=== PATIENT | female | born 1980 | race Two or more races ===

== ENCOUNTER 2022-04-25 02:49 | Emergency (ER) | payer MEDICAID ==
[~2022-04-25] VITALS: Ht 157.5 cm; Wt 69.0 kg
[~2022-04-25 02:49] MED LIST: IBUP200C14
[2022-04-25 04:36] LABS: Albumin 3.7 g/dL (3.4-5.0); Calcium 9.2 mg/dL (8.5-10.1); Potassium 3.6 mmol/L (3.5-5.1)
[2022-04-25 04:39] LABS: Bilirubin, Total 0.2 mg/dL (0.2-1.0); Total Protein 7.6 g/dL (6.4-8.2)
[2022-04-25 04:49] LABS: Basophils # (auto) 0 10 ^3/uL (0-0.2); Basophils % (auto) 0.3 % (0.0-2.0); Eosinophils # (auto) 0.2 10 ^3/uL (0-0.8); Eosinophils % (auto) 1.4 % (0.0-7.0); Hematocrit 39.8 % (36.0-46.0); Hemoglobin 13.5 g/dL (12.2-16.2); Lymphocytes # (auto) 2.9 10 ^3/uL (0.4-5.4); Lymphocytes % (auto) 23.9 % (10.0-50.0); Mean Corpuscular Hemoglobin 30.7 pg (28.0-32.0); Mean Corpuscular Volume 90.3 fL (80.0-100.0); Monocytes # (auto) 0.7 10 ^3/uL (0-1.3); Monocytes % (auto) 5.4 % (0.0-12.0); Neutrophils # (auto) 8.4 10 ^3/uL (1.6-8.6); Red Blood Cells 4.41 10^6/uL (4.0-5.20); White Blood Cell 12.3 10^3/uL (4.4-10.8)
[2022-04-25] MEDS ORDERED: DICY10CA PO (05:33)
[2022-04-25] MEDS ORDERED: ONDA-144 PO (05:33)
[2022-04-25 06:15] VITALS: BP 121/86
== END 2022-04-25 06:25 | disposition home or self-care (01) ==
LOC: ER 02:49
DX: K80.20 Calculus of gallbladder without cholecystitis without obstruction (principal); R10.2 Pelvic and perineal pain
CPT/HCPCS: 36415; 74176; 80053; 83690; 84702; 85025